=== PATIENT | female | born 1975 | race Caucasian/White ===

== ENCOUNTER → 2019-05-24 | Outpatient (CLI) | payer BC ==
--- NOTE | 2019-05-24 11:58 | RAD ---
EXAM: Bilateral knees, 3 views. HISTORY: Pain. COMPARISON: None. FINDINGS: 3 views of both knees are obtained. There is mild medial compartment joint space narrowing and trochlea bilateral spurring. There is minimal bilateral patellar spurring and there is slight enthesopathy along the patellae. There is no fracture, dislocation or subluxation. There is no joint effusion. IMPRESSION: 1. Mild medial and minimal patellofemoral compartment osteoarthritis of both knees. 2. No acute osseous finding. Electronically signed by: Mera Vance MD (05/24/2019 11:56 AM) [place] [id number]
== END | disposition home or self-care (01) ==
LOC: PMG 10:55
PROVIDERS: ATTEND Family Medicine
DX: M17.0 Bilateral primary osteoarthritis of knee (principal); M76.892 Other specified enthesopathies of left lower limb, excluding foot; M76.891 Other specified enthesopathies of right lower limb, excluding foot
CPT/HCPCS: 73562

== ENCOUNTER → 2020-01-16 | Outpatient (CLI) | payer BC ==
--- NOTE | 2020-01-16 16:57 | RAD ---
KNEE BILAT 3V 01/16/2020 12:00 AM INDICATION: Bilateral knee pain for years COMPARISON: None available. TECHNIQUE: 3 views of the right and 3 views of the left knee are provided. FINDINGS/ IMPRESSION: No significant knee joint effusion is identified. Mild bilateral medial femorotibial joint space narrowing with marginal osteophytosis asymmetrically involving the left medial femorotibial joint space. Findings are compatible with mild osteoarthrosis. No acute fracture or dislocation. Soft tissue swelling. Electronically signed by: Lindsey Greene MD (01/16/2020 4:54 PM) [id number]
== END ==
LOC: RAD 11:44
PROVIDERS: ATTEND Physician Assistant
DX: M17.0 Bilateral primary osteoarthritis of knee (principal); M79.89 Other specified soft tissue disorders
CPT/HCPCS: 73562

== ENCOUNTER → 2020-05-27 | Outpatient (CLI) | payer BC ==
--- NOTE | 2020-05-27 13:34 | RAD ---
EXAM: Bilateral lower extremity venous Doppler sonogram. HISTORY: Pain and swelling. TECHNIQUE: Eastman scale and color Doppler sonographic evaluation of the bilateral lower extremity veins with spectral waveform analysis was performed. FINDINGS: There is normal color flow, normal compressibility and there are normal spectral waveforms in the common femoral, superficial femoral, popliteal, posterior tibial and greater saphenous veins. IMPRESSION: No Doppler evidence of lower extremity deep venous thrombosis. Electronically signed by: Mera Vance MD (05/27/2020 1:32 PM) [id number]
== END ==
LOC: US 12:32
PROVIDERS: ATTEND Family Medicine
DX: R22.43 Localized swelling, mass and lump, lower limb, bilateral (principal); R79.89 Other specified abnormal findings of blood chemistry
CPT/HCPCS: 93970

== ENCOUNTER 2020-07-03 19:20 | Emergency (ER) | payer BC ==
[~2020-07-03] VITALS: Ht 172.7 cm; Wt 131.6 kg
[2020-07-03] MEDS ORDERED: IV NORMAL SALINE 1,000ML 1,000 ML IV SCH (19:45)
[2020-07-03] MEDS ORDERED: ASPIRIN CHEWABLE 81 MG TABLET. PO ONE (19:45)
[2020-07-03] MEDS ORDERED: ONDANSETRON PF 4 MG/2 ML VIAL. IVP ONE (20:15)
[2020-07-03] MEDS ORDERED: MORPHINE SULFATE 4 MG/ML DISP.SYRIN. IV ONE (20:15)
[2020-07-03 20:23] LABS: BASO # 0.1 x10^3/uL (0.0-0.2); BASO % 1 % (0-3); EOS # 0.1 x10^3/uL (0.0-0.7); EOS % 1 % (0-3); HEMATOCRIT 39.2 % (36.0-47.0); LYMPH # 2.2 x10^3/uL (1.0-4.8); LYMPH % 28 % (24-48); MEAN CORPUSCULAR HEMOGLOBIN 32 pg (25-35); MEAN CORPUSCULAR HGB CONC 33 g/dL (31-37); MEAN CORPUSCULAR VOLUME 96 fL (79-100); MONO # 0.7 x10^3/uL (0.0-1.1); MONO % 9 % (0-9); NEUT % 62 % (31-73); PLATELET COUNT 278 x10^3/uL (140-400); RED CELL DISTRIBUTION WIDTH 13.4 % (11.5-14.5); WHITE BLOOD COUNT 8.1 x10^3/uL (4.0-11.0)
--- NOTE | 2020-07-03 20:50 | RAD ---
INDICATION: Reason: Chest pain / Spl. Instructions: / History: COMPARISON: None. FINDINGS: Single view of chest obtained. Cardiac silhouette is mildly prominent but likely exaggerated by portable technique. No definite new region of focal consolidation or pulmonary edema. IMPRESSION: * No focal airspace consolidation or edema. Electronically signed by: Louie Painter MD (07/03/2020 8:47 PM) [id number]
[2020-07-03 21:18] LABS: CALCIUM 8.7 mg/dL (8.5-10.1); CREATININE 0.8 mg/dL (0.6-1.0); GFR 77.9; POTASSIUM 3.7 mmol/L (3.5-5.1)
[2020-07-03 21:31] LABS: ALBUMIN 2.9 g/dL (3.4-5.0); ALBUMIN/GLOBULIN RATIO 0.9 (1.0-1.7); MAGNESIUM 1.8 mg/dL (1.8-2.4); TOTAL BILIRUBIN 0.5 mg/dL (0.2-1.0); TOTAL PROTEIN 6.2 g/dL (6.4-8.2)
--- NOTE | 2020-07-03 21:37 | PHYS DOC ---
Past History Past Medical History: Other Additional Past Medical Histor: ptsd, spinal stenosis (KEYANNA TAVAREZ APRN) Past Surgical History: , Hysterectomy, Other Additional Past Surgical Histo: ectopoic , uterine ablation, bilat planta faciitis (KEYANNA TAVAREZ APRN) Alcohol Use: None (KEYANNA TAVAREZ APRN) General Adult EDM: Chief Complaint: CHEST PAIN HPI: HPI: Patient is a 44-year-old female who presents with chest pain since 7 PM tonight. Patient states she was laying in bed sleeping when all of a sudden she started having left-sided chest pain that woke her up. Patient also reports left-sided flank pain for the last week. Patient states that movement and deep breathing exacerbate the pain. Patient denies taking anything for the pain prior to arrival. Patient has a history of chronic pain, anxiety, depression. Patient denies nausea/vomiting. (KEYANNA TAVAREZ APRN) Review of Systems: Review of Systems: Constitutional: Denies fever or chills Eyes: Denies change in visual acuity HENT: Denies nasal congestion or sore throat Respiratory: Denies cough or shortness of breath Cardiovascular: Denies chest pain or edema GI: Denies abdominal pain, nausea, vomiting, bloody stools or diarrhea : Denies dysuria, reports frequency Musculoskeletal: Denies back pain or joint pain Integument: Denies rash Neurologic: Denies headache, focal weakness or sensory changes Endocrine: Denies polyuria or polydipsia Lymphatic: Denies swollen glands Psychiatric: Denies depression or anxiety (KEYANNA TAVAREZ APRN) Current Medications: Current Meds: Current Medications Medications (Trade) Dose Ordered Sig/Arlen Start Time Stop Time Status Last Admin Dose Admin Aspirin (Aspirin Chewable) 324 mg 1X ONCE 07/03/20 19:45 07/03/20 20:13 DC 07/03/20 20:15 324 MG Morphine Sulfate (Morphine 4mg Syringe) 4 mg 1X ONCE 07/03/20 20:15 07/03/20 20:16 DC 07/03/20 20:16 4 MG Ondansetron HCl (Zofran) 4 mg 1X ONCE 07/03/20 20:15 07/03/20 20:16 DC Sodium Chloride 1,000 ml @ 1,000 mls/hr Q1H 07/03/20 19:45 07/03/20 20:44 DC 07/03/20 20:15 1,000 MLS/HR (KEYANNA TAVAREZ ASSISTANT MANAGER BILINGUAL) Allergies: Allergies: Allergies Coded Allergies Type Severity Reaction Last Updated Verified No Known Drug Allergies 07/03/20 No (KEYANNA TAVAREZ APRN) Physical Exam: PE: Constitutional: Well developed, well nourished, no acute distress, non-toxic appearance. [] HENT: Normocephalic, atraumatic, bilateral external ears normal, oropharynx moist, no oral exudates, nose normal. [] Eyes: PERRLA, EOMI, conjunctiva normal, no discharge. [] Neck: Normal range of motion, no tenderness, supple, no stridor. [] Cardiovascular:Heart rate regular rhythm, no murmur [] Lungs & Thorax: Bilateral breath sounds clear to auscultation [] Abdomen: Bowel sounds normal, soft, no tenderness, no masses, no pulsatile mass es. [] Skin: Warm, dry, no erythema, no rash. [] Back: No tenderness, left-sided CVA tenderness. [] Extremities: No tenderness, no cyanosis, no clubbing, ROM intact, no edema. [] Neurologic: Alert and oriented X 3, normal motor function, normal sensory function, no focal deficits noted. [] Psychologic: Affect normal, judgement normal, mood normal. [] (KEYANNA TAVAREZ APRN) Current Patient Data: Labs: Laboratory Tests Test 07/03/20 20:06 07/03/20 20:42 White Blood Count 8.1 x10^3/uL (4.0-11.0) Red Blood Count 4.10 x10^6/uL (3.50-5.40) Hemoglobin 13.0 g/dL (12.0-15.5) Hematocrit 39.2 % (36.0-47.0) Mean Corpuscular Volume 96 fL (79-100) Mean Corpuscular Hemoglobin 32 pg (25-35) Mean Corpuscular Hemoglobin Concent 33 g/dL (31-37) Red Cell Distribution Width 13.4 % (11.5-14.5) Platelet Count 278 x10^3/uL (140-400) Neutrophils (%) (Auto) 62 % (31-73) Lymphocytes (%) (Auto) 28 % (24-48) Monocytes (%) (Auto) 9 % (0-9) Eosinophils (%) (Auto) 1 % (0-3) Basophils (%) (Auto) 1 % (0-3) Neutrophils # (Auto) 5.0 x10^3uL (1.8-7.7) Lymphocytes # (Auto) 2.2 x10^3/uL (1.0-4.8) Monocytes # (Auto) 0.7 x10^3/uL (0.0-1.1) Eosinophils # (Auto) 0.1 x10^3/uL (0.0-0.7) Basophils # (Auto) 0.1 x10^3/uL (0.0-0.2) Prothrombin Time 10.2 SEC (9.4-11.4) Prothrombin Time INR 1.0 (0.9-1.1) Activated Partial Thromboplast Time 27 SEC (23-33) D-Dimer (Arleen) 0.82 mg/L (0.00-0.50) H Vital Signs: Vital Signs Date Time Temp Pulse Resp B/P (MAP) Pulse Ox O2 Delivery O2 Flow Rate FiO2 07/03/20 20:16 16 Room Air 07/03/20 19:40 98.9 85 117/101 (106) 97 (KEYANNA TAVAREZ APRN) EKG: EKG: [] (KEYANNA TAVAREZ APRN) Radiology/Procedures: Radiology/Procedures: []INDICATION: Reason: Chest pain / Spl. Instructions: / History: COMPARISON: None. FINDINGS: Single view of chest obtained. Cardiac silhouette is mildly prominent but likely exaggerated by portable technique. No definite new region of focal consolidation or pulmonary edema. IMPRESSION: * No focal airspace consolidation or edema. Electronically signed by: Louie Painter MD (07/03/2020 8:47 PM) [id number] (KEYANNA TAVAREZ APRN) Heart Score: HEART Score for Chest Pain: HEART Score for Chest Pain Response (Comments) Value History Moderately Suspicious 1 ECG Normal 0 Age < 45 0 Risk Factors No Risk Factors 0 Troponin < Normal Limit 0 Total 1 Risk Factors: Risk Factors: DM, Current or recent (<one month) smoker, HTN, HLP, family history of CAD, obesity. Risk Scores: Score 0 - 3: 2.5% MACE over next 6 weeks - Discharge Home Score 4 - 6: 20.3% MACE over next 6 weeks - Admit for Clinical Observation Score 7 - 10: 72.7% MACE over next 6 weeks - Early Invasive Strategies (KEYANNA TAVAREZ APRN) Course & Med Decision Making: Course & Med Decision Making Pertinent Labs and Imaging studies reviewed. (See chart for details) []Patient is a 44-year-old female who presents with chest pain since 7 PM tonight. Patient states she was laying in bed sleeping when all of a sudden she started having left-sided chest pain that woke her up. Patient also reports left-sided flank pain for the last week. Patient states that movement and deep breathing exacerbate the pain. Patient denies taking anything for the pain prior to arrival. Patient has a history of chronic pain, anxiety, depression. Patient denies nausea/vomiting. Chest x-ray is negative for any acute abnormalities. Troponin is negative. Heart score of 1. Patient given morphine and Zofran for pain and nausea. D-dimer was elevated. CTA ordered to rule out PE. UA ordered to rule out infection. Patient was reporting left-sided flank pain. (KEYANNA TAVAREZ APRN) Course & Med Decision Making Patient is a 44-year-old female who presented to the emergency department with a chief complaint of chest pain but was actually pointing to her epigastrium. Laboratory analysis notable for hypoalbuminemia. CT notable for hepatic steatosis. Her drug screen showed positive opioids and amphetamines, however patient is on phentermine which will show is a false positive possibly on urine analysis. On reassessment patient was feeling better was ready to be discharged home. Discussed all findings with patient advised to call her primary care physician first thing in the morning to discuss hepatic steatosis and hypoalbuminemia. Advised to come back to the ED with new or concerning symptoms. Patient grateful, verbalized understanding and agreed with plan of discharge. (PARRIS ARANGO MD) Dragon Disclaimer: Dragon Disclaimer: This electronic medical record was generated, in whole or in part, using a voice recognition dictation system. (KEYANNA TAVAREZ APRN) Departure Departure: Impression: Primary Impression: Hypoalbuminemia Disposition: 01 DC HOME SELF CARE/HOMELESS Condition: GOOD Referrals: ANETA PEDRO MD (PCP) Additional Instructions: Please read all the attached information. Your laboratory analysis was not concerning except for a low blood protein called albumin. You can look up hypoalbuminemia and discuss this with your primary care physician. Your CAT scan showed no blood clot in the lungs but did show diffuse hepatic steatosis or fatty liver. Please research this to understand the disease process. Please call your primary care physician first thing in the morning to discuss your recent ED visit and diagnosis of hepatic steatosis. Please come back to the emergency department immediately with any new or concerning symptoms. KEYANNA TAVAREZ APRN Jul 03, 2020 21:37 PARRIS ARANGO MD Jul 03, 2020 23:10
[2020-07-03 21:39] LABS: BARBITURATES NEG (NEG); BENZODIAZEPINES NEG (NEG); CANNABINOIDS NEG (NEG); COCAINE NEG (NEG); METHADONE NEG (NEG); OPIATES POS (NEG); PHENCYCLIDINE NEG (NEG)
[2020-07-03 21:42] LABS: AMPHETAMINE/METHAMPHETAMINE POS (NEG)
--- NOTE | 2020-07-03 21:53 | EKG ---
[address] [address] Test Date: 2020-07-03 Test Time: 19:41:19 Pat Name: FREDDY MCDANIEL Department: Room: Gender: F Lead Relay Tester: : [id number] Requested By: KEYANNA TAVAREZ Order Number: [id number] Reading MD: Measurements Intervals [place] Rate: 94 P: 45 ID: [id number] QRS: 27 QRSD: 94 T: 25 QT: 362 QTc: 458 Interpretive Statements SINUS RHYTHM NORMAL ECG RI6.02 No previous ECG available for comparison
[2020-07-03] MEDS ORDERED: CONTRAST GIVEN. MC PRN (22:30)
[2020-07-03] MEDS ORDERED: IOHEXOL 350 MG/ML 100 ML VIAL. IV ONE (22:30)
--- NOTE | 2020-07-03 22:56 | RAD ---
Exam: CT of chest with contrast INDICATION: Chest pain, short of air, congestion TECHNIQUE: Sequential axial images through the chest obtained following the administration of 100 mL of Omni 350 IV contrast. Sagittal and coronal reformatted images were reconstructed from the axial da ta and reviewed. 3-D reformatted images were reconstructed from the axial data and reviewed. Comparisons: Chest x-ray same day FINDINGS: Visual is portions of the thyroid are unremarkable. No enlarged mediastinal lymph nodes. Heart size is normal. No pericardial effusion. Thoracic aorta has a normal course and caliber. Pulmon alphonso artery is not enlarged. No pulmonary embolus identified within the main, lobar or segmental pulmo nary arteries Airways are patent. No consolidation or pneumothorax. No suspicious lung nodules are identified. No no pleural effusion or thickening. Diffuse hepatic steatosis. No suspicious osseous lesions or acute fractures. IMPRESSION: 1. No pulmonary embolus identified within the main, lobar or segmental pulmonary arteries. 2. Diffuse hepatic steatosis. Exposure: One or more of the following in the visualized dose reduction techniques were utilized for this examination: 1. Automated exposure control 2. Adjustment of the MA and/or KV according to patient size 3. Use of iterative of reconstructive technique Electronically signed by: Phoenix Lira MD (07/03/2020 10:54 PM) [email or web address]
[2020-07-03 23:20] VITALS: BP 143/78
[2020-07-03 23:21] LABS: BILIRUBIN,URINE NEG (NEG); CLARITY,URINE CLEAR; COLOR,URINE AMBER; GLUCOSE,URINE NEG (NEG); UROBILINOGEN,URINE 0.2 mg/dL (0.2 mg/dL)
[2020-07-03 23:22] LABS: BACTERIA,URINE 0 /HPF (0-FEW); NITRITE,URINE NEG (NEG); RBC,URINE 0 /HPF (0-2); SQUAMOUS EPITHELIAL CELL,UR MANY /LPF; WBC,URINE 0 /HPF (0-4)
== END 2020-07-03 23:20 | disposition home or self-care (01) ==
LOC: ER 19:20
DX: E88.09 Other disorders of plasma-protein metabolism, not elsewhere classified (principal); F43.10 Post-traumatic stress disorder, unspecified
CPT/HCPCS: 36415; 71045; 71275; 80053; 80307; 81001; 81025; 83690; 83735; 83880; 84484; 85025; 85379; 85610; 85730; 93005; 96361; 96374; 99285; J2270; J7030; Q9967